=== PATIENT | male | born 1995 | race African-American/Black ===

== ENCOUNTER 2016-07-02 23:16 | Emergency (ER) | payer SELFPAY ==
[~2016-07-02] VITALS: Ht 175.3 cm; Wt 59.0 kg
[~2016-07-02 23:16] MED LIST: BENA25TA5 PO; EPIP0.3I IM; PRED20 PO; RANI150 PO
[2016-07-02 23:20] VITALS: BP 121/72; PULSE 88; RESP 16; TEMP 97.4; O2SAT 99
--- NOTE | 2016-07-03 00:43 | PD ---
HPI Chief Complaint: Injury Time Seen by Provider: 00:43 Travel History International Travel<30 days: No Contact w/Intl Traveler<30days: No Traveled to known affect area: No History of Present Illness HPI 21-year-old male presents to emergency department for evaluation. Patient states he believes he broke his jaw. He was playing basketball last evening when he was elbowed in his jaw. He states it is difficult to chew since then secondary to pain. Pain is mostly on the left lateral aspect of the mandible. He has no other symptoms to report at this time. 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) Reported Meds & Prescriptions Reported Meds & Active Scripts Active Ibuprofen 600 Mg Tab 600 Mg PO Q8HR PRN Epipen 2-Pak0.3 Mg 0.3 Mg Inj 0.3 Mg IM ONCE PRN If anaphylactic symptoms persist, dose may be repeated in 5-15 minutes Benadryl (Diphenhydramine HCl) 25 Mg Tab 25 Mg PO Q6H Zantac 150 Mg Tab (Ranitidine HCl) 150 Mg Tab 150 Mg PO BID 5 Days Deltasone 20 Mg Tab (Prednisone) 20 Mg Tab 40 Mg PO DAILY 4 Days Review of Systems Except as stated in HPI: all other systems reviewed are Neg Physical Exam Narrative GENERAL: Well-nourished, well-developed male patient, ambulatory no acute distress SKIN: Warm and dry. Without erythema, ecchymosis, rashes, or lesions HEAD: Normocephalic. Tenderness to palpation of the left TMJ. No crepitus. No malocclusion. EYES: No scleral icterus. No injection or drainage. NECK: Supple, trachea midline. No JVD or lymphadenopathy. CARDIOVASCULAR: Regular rate and rhythm without murmurs, gallops, or rubs. RESPIRATORY: Breath sounds equal bilaterally. No accessory muscle use. MUSCULOSKELETAL: No cyanosis, or edema. BACK: Nontender without obvious deformity. No CVA tenderness. Data Data Last Documented VS Vital Signs Date Time Temp Pulse Resp B/P Pulse Ox O2 Delivery O2 Flow Rate FiO2 07/03/16 00:51 16 07/02/16 23:20 97.4 88 121/[address] Facial Bones W/O Iv Cont (07/03/16 ) MDM Medical Decision Making Medical Screen Exam Complete: Yes Emergency Medical Condition: Yes Medical Record Reviewed: Yes Differential Diagnosis Contusion versus fracture versus dislocation Narrative Course 21-year-old male presents to the emergency department for evaluation. CT imaging of the facial bones are without acute bony abnormality. Patient likely has a contusion and is counseled on how to care for this. He agrees to return immediately with any acute worsening of symptoms. Diagnosis Primary Impression: Contusion of mandibular joint area Qualified Code: S00.83XA - Contusion of mandibular joint area, initial encounter Referrals: Primary Care Physician Patient Instructions: Facial Contusion (ED), General Instructions Departure Forms: Tests/Procedures, Work Release Enter return to work date: Jul 05, 2016 Additional Instructions: Ice to the affected area Soft diet Avoid foods that require a lot of chewing while injury resolveS Follow-up primary care provider Return immediately to the emergency department with any acute worsening symptoms Med/Other Pt SpecificInfo: Prescription(s) given Scripts Ibuprofen 600 Mg Keo135 Mg PO Q8HR PRN (PAIN) #30 TAB Ref 0 Prov:Allison Yi 07/03/16 Disposition: 01 DISCHARGE HOME Condition: Stable Allison Yi Jul 03, 2016 00:43
--- NOTE | 2016-07-03 02:02 | RADRPT ---
EXAM DATE/TIME: 07/03/2016 01:41 [facility] COMPARISON: No previous studies available for comparison. INDICATIONS : Elbowed in left side jaw yesterday playing basketball. RADIATION DOSE: 34.85 CTDIvol (mGy) MEDICAL HISTORY : None SURGICAL HISTORY : None. ENCOUNTER: Initial ACUITY: 1 day PAIN SCORE: 7/10 LOCATION: Left mandible TECHNIQUE: Volumetric scanning of the facial bones was performed. Using automated exposure control and adjustme nt of the mA and/or kV according to patient size, radiation dose was kept as low as reasonably achiev able to obtain optimal diagnostic quality images. FINDINGS: ORBITS: The orbital and infraorbital osseous structures are intact. The retroconal structures have a normal configuration. No radiopaque foreign bodies are seen. NASAL BONE: The nasal bone and maxillary spine are intact ZYGOMATIC ARCHES: Symmetric without evidence of fracture. SINUSES: The maxillary, ethmoid and frontal sinuses are intact. No air-fluid levels seen. NASAL CAVITY: The nasal septum is intact and midline. The lacrimal ducts are intact. SOFT TISSUES: No radiopaque foreign bodies seen. No soft-tissue swelling is seen. INTRACRANIAL: No intracranial air seen. CRIBIFORM PLATE: Grossly intact. CONCLUSION: Normal examination. Calvin Saab MD on July 03, 2016 at 1:59 Board Certified Radiologist. This report was verified electronically.
[2016-07-03] MEDS ORDERED: IBUP-232 PO (02:04)
== END 2016-07-03 02:18 | disposition home or self-care (01) ==
LOC: NEPB 23:16
DX: S00.83XA Contusion of other part of head, initial encounter (principal); Z72.0 Tobacco use; W50.0XXA Accidental hit or strike by another person, initial encounter; Y93.67 Activity, basketball
CPT/HCPCS: 70486